=== PATIENT | male | born 2005 | race Caucasian/White ===

== ENCOUNTER → 2023-02-27 | Outpatient (CLI) | payer OTHER ==
[~2023-02-27] MED LIST: GADOTERATE 0.5 MMOL/ML (CLARISCAN) 15 ML VIAL IV ONE; IOHEXOL 240 MGI/ML 50 ML (OMNIPAQUE) VIAL IV ONE; LIDOCAINE 1% INJ 10 ML VIAL INJ ONE; LIDOCAINE 1% INJ 10 ML VIAL ONE
--- NOTE | 2023-02-27 14:09 | Diagnostic Imaging Report ---
INDICATION: Pre-MRI screening. Time of Exam: 1:46 PM Single view the orbits was obtained. No radiopaque orbital foreign bodies are detected. IMPRESSION: No radiopaque orbital foreign bodies detected. Dictated by: Dictated on workstation # [id number]
--- NOTE | 2023-02-27 14:50 | Diagnostic Imaging Report ---
INDICATION: Left shoulder pain. Patient presents for fluoroscopically assisted contrast injection of the shoulder prior to MRI. Patient was brought to the procedure room and placed on table in the supine position. The left shoulder was prepped and draped in the usual sterile fashion. A small amount of 1% lidocaine was utilized for local anesthesia. A 22-gauge needle was advanced into the left shoulder at the rotator interval. A 15 mL solution of iodinated contrast, normal saline, and gadolinium was injected under fluoroscopic observation. 10 seconds of fluoroscopic time was utilized. Needle was removed, and hemostasis was obtained. Patient tolerated the procedure well and was sent to MRI in satisfactory condition. IMPRESSION: Successful left shoulder injection of gadolinium contrast solution, using fluoroscopy. Dictated by: Dictated on workstation # [id number]
--- NOTE | 2023-02-27 15:46 | Diagnostic Imaging Report ---
INDICATION: Left shoulder pain, injury while cheering. EXAMINATION: Left shoulder MRI with contrast, 02/27/2023. FINDINGS: The subscapularis tendon is intact. Long head of the biceps tendon is intact and lies in the bicipital groove. The supraspinatus and infraspinatus tendons intact. Biceps tendon anchor intact. There is linear high signal along the anterior labrum, well-seen on coronal T1-weighted image #14. An adjacent linear focus of hyperintensity/contrast extends medially along the anterior aspect of the glenoid, most likely along the labral tear. This is likely a developing paralabral cyst. The supraspinatous and infraspinatus tendons intact. There is no acute osseous abnormality. Muscle volume is preserved. Visualized axilla unremarkable. IMPRESSION: 1. Tear of the anterior labrum with a likely small developing paralabral cyst. 2. Rotator cuff intact. Biceps tendon also intact. Dictated by: Dictated on workstation # [id number]
== END ==
LOC: RAD 13:24
PROVIDERS: ATTEND Physician Assistant Medical
DX: S43.432A Superior glenoid labrum lesion of left shoulder, initial encounter (principal); X58.XXXA Exposure to other specified factors, initial encounter
CPT/HCPCS: 23350; 73040; 73222